=== PATIENT | female | born 1970 | race Caucasian/White ===

== ENCOUNTER → 2017-07-11 | Outpatient (CLI) | payer OTHER ==
--- NOTE | 2017-07-11 13:53 | MR ---
EXAMINATION TYPE: MR lumbar spine wo con DATE OF EXAM: 07/11/2017 COMPARISON: 06/25/2011 HISTORY: Spinal stenosis, neck and back pain TECHNIQUE: Multiplanar, multisequence images of the lumbar spine were acquired. L1-L2: There remains a small right paracentral disc herniation, minimally impressing upon the thecal sac without spinal canal stenosis. No neural foraminal narrowing is seen. L2-L3: No significant disc disease, neuroforaminal stenosis, or spinal canal stenosis. L3-L4: There is flattening in the normal disc convexity with mild broad-based disc bulge and facet ar thropathy. Neural foramen and spinal canal are patent. L4-L5: Small broad-based disc bulge is seen without neural foraminal stenosis or spinal canal stenosi s. Mild facet arthropathy and ligamentum flavum buckling. L5-S1: There remains a right paracentral disc herniation/extrusion with 8 mm of caudal migration of t he disc material. This abuts the forming S1 nerve roots and creates moderate bilateral neural foramin al narrowing. Mild hypertrophic facet arthropathy is present. This has slightly progressed from the p rior exam where degree of herniation was approximately 5 mm and neural foraminal narrowing was mild b ilaterally. Although this abuts the ventral thecal sac no significant spinal canal stenosis is seen. Lumbar segments are intact with normal vertebral body heights and alignment. Bone marrow signal is un remarkable. Conus medullaris has a normal appearance. IMPRESSION: 1. Mild progression of the known L5-S1 herniation with 8 mm caudal migration of disc material. This n ow results in moderate neural foraminal narrowing, previously mild, and again abuts the forming S1 ne rve roots. 2. Multilevel mild degenerative disc disease, otherwise similar to the prior exam.
== END | disposition home or self-care (01) ==
LOC: RADMRIMAIN 12:34
PROVIDERS: ATTEND Family Medicine
DX: M99.73 Connective tissue and disc stenosis of intervertebral foramina of lumbar region (principal); M51.27 Other intervertebral disc displacement, lumbosacral region; M51.36 Other intervertebral disc degeneration, lumbar region
CPT/HCPCS: 72148

== ENCOUNTER → 2017-09-21 | Outpatient (CLI) | payer OTHER ==
[2017-09-16 13:29] VITALS: BMI 36.6
--- NOTE | 2017-09-21 13:15 | P.CONS ---
History of Present Illness - Reason for Consult Consult date: 09/21/17 - Chief Complaint Back pain - History of Present Illness This is a 47-year-old female with a four-year history of back pain that extends from her neck down to her lower back and also to both legs more to the left side than the right side with numbness and tingling in both legs in no specific radiculopathic distribution. The patient has significant psychiatric history with psychosis and schizophrenia however she is stable right now and taking her medications intramuscularly once a month. Her pain gets worse with activity and improves by sitting down. She denies any bowel or bladder dysfunction or any weakness in the lower extremities. She denies any weight loss recently. The patient takes Tylenol for her pain which does not control her pain well. Review of Systems Cardiovascular: Denies as per HPI, Denies chest pain, Denies claudication, Denies decreased exercise tolerance, Denies dyspnea on exertion, Denies edema, Denies high blood pressure, Denies irregular heart beat, Denies leg edema, Denies lightheadedness, Denies orthopnea, Denies palpitations, Denies paroxysmal nocturnal dyspnea, Denies phlebitis, Denies rapid heart beat, Denies shortness of breath, Denies syncope Respiratory: Denies as per HPI, Denies congestion, Denies cough, Denies cough with sputum, Denies dyspnea, Denies excessive sputum, Denies hemoptysis, Denies home oxygen, Denies pain, Denies pain on inspiration, Denies pleurisy, Denies respiratory infections, Denies sleep apnea, Denies snoring, Denies wheezing Musculoskeletal: Reports as per HPI Neurological: Reports as per HPI Psychiatric: Reports as per HPI Past Medical History Past Medical History: Diabetes Mellitus, GERD/Reflux, Hyperlipidemia Additional Past Medical History / Comment(s): chronic back pain,headaches History of Any Multi-Drug Resistant Organisms: None Reported Past Surgical History: No Surgical Hx Reported Additional Past Surgical History / Comment(s): Plastic surgery on arms and legs Past Anesthesia/Blood Transfusion Reactions: No Reported Reaction Additional Past Anesthesia/Blood Transfusion Reaction / Comm: never has had anesthesia Smoking Status: Current every day smoker - Past Family History Mother Family Medical History: No Reported History Father Family Medical History: No Reported History Additional Family Medical History / Comment(s): When asked about patient's family history she states is confidential and she only talk about in the court of law. Medications and Allergies Home Medications Medication Instructions Recorded Confirmed Type ARIPiprazole [Abilify] 10 mg PO DAILY #30 tab 08/16/15 09/16/17 Rx Propranolol [Inderal] 30 mg PO BID #30 tab 08/16/15 09/16/17 Rx Allergies Allergy/AdvReac Type Severity Reaction Status Date / Time ibuprofen Allergy "hot Verified 09/16/17 13:22 flashes and nausea" Physical Exam - Constitutional General appearance: obese - Respiratory Respiratory: bilateral: CTA - Cardiovascular Rhythm: regular Heart sounds: normal: S1, S2 - Psychiatric Psychiatric: A&O x's 3 Neuro exam of the lower extremities showed normal muscle strength and normal knee reflexes however she has absent ankle reflexes bilaterally and symmetrically. Straight leg raising test negative bilaterally. She has tenderness around the left sacroiliac joint and also in the paravertebral area extending from the lower cervical, upper thoracic ,and lower lumbar areas. Assessment and Plan Plan: This is a 47-year-old female with back pain extending from the lower neck area to the lumbar area and motor this pain is in the lower back area with radiation to the left leg numbness and tingling in both legs. The patient had an MRI which showed disc herniation towards the right side of the L5-S1 level. Treatment for her lower back pain includes physical therapy, interventional pain procedures. I recommend against giving the patient any opioids. The patient may benefit from getting lumbar epidural steroid injection at the L5-S1 level under fluoroscopic guidance. The patient was asked to measure her blood sugar for the first week after the injection because of her history of diabetes and also was warned that given steroids may cause psychosis however she is on stable dose of Lantus I got medications and has been doing well for the last few years. The above-mentioned procedure was explained to the patient and her questions were answered.
[2017-09-21 13:27] VITALS: BP 152/68; PULSE 92; RESP 16; TEMP 97.7
== END | disposition home or self-care (01) ==
LOC: PNWHC3 12:44
PROVIDERS: ATTEND Anesthesiology
DX: R20.0 Anesthesia of skin (principal); R20.2 Paresthesia of skin; M54.5 Low back pain; E11.9 Type 2 diabetes mellitus without complications; K21.9 Gastro-esophageal reflux disease without esophagitis; E78.5 Hyperlipidemia, unspecified; F17.200 Nicotine dependence, unspecified, uncomplicated
CPT/HCPCS: 99211